=== PATIENT | female | born 1980 | race Caucasian/White ===

== ENCOUNTER 2018-06-24 07:40 | Day surgery (SDC) | payer OTHER ==
[2018-06-23 14:42] LABS: HEMATOCRIT 39.3 % (36.0-48.0); HEMOGLOBIN 13.3 g/dL (12-16); MCH 31.4 pg (26.0-34.0); MCHC 33.8 g/dL (31.0-37.0); MCV 92.9 fL (80.0-100.0); RBC 4.23 10x6/uL (4.00-5.40); RDW 13.2 % (11.5-14.5); WBC 12.2 10x3/uL (4.8-10.8)
[~2018-06-24] VITALS: Ht 157.5 cm; Wt 63.5 kg
--- NOTE | ~2018-06-24 | OP ---
PATIENT NAME: VALERIE PALMER MEDICAL RECORD: [id number] :82 LOCATION:[facility] ADMISSION DATE: SURGEON: BETTE PETERSEN MD DATE OF OPERATION: 06/24/2018 DATE OF SERVICE: 06/24/2018 PREOPERATIVE DIAGNOSES: Lumbar spinal stenosis and foraminal stenosis, right L5-S1. POSTOPERATIVE DIAGNOSES: Lumbar spinal stenosis and foraminal stenosis, right, S1. SURGEON: Bette Petersen MD PROCEDURE: Right L5-S1 lumbar laminotomy, medial facetectomy and foraminotomy with METRx retractor. DESCRIPTION AND TECHNIQUE: After induction of general endotracheal anesthesia, the patient was rolled prone on the Emil frame. Lumbar spine was prepped and draped in usual sterile fashion. Fluoroscopic x-ray and spinal needle localized the L5-S1 interspace on the right side. A fluoroscopic x-ray confirmed the level at L5-S1 on the right. Next, a Midas-Jeremy drill and microscope were used to perform laminotomy, medial facetectomy and foraminotomy at L5-S1 on the right. Hypertrophied ligamentum flavum was removed with Cloward rongeurs. Foraminotomy was carried out with a Cloward rongeur on the right side at L5-S1. Following this, the L5 and S1 nerve roots were decompressed well. Meticulous hemostasis was maintained throughout the wound. Wound was irrigated with copious amounts of Ancef irrigant solution. The fascia was closed with 2-0 Vicryl suture. Subdermal layer was closed with 3-0 Vicryl suture. The skin was reapproximated with Steri-Strips and benzoin. A sterile dressing was applied to the wound. The patient was awakened in good condition and taken to recovery. All counts were reported as correct. Estimated blood loss was minimal. 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 06/24/18 [place] [address]
[2018-06-24] MEDS ORDERED: NEURONTIN600 MG PO (08:01)
[2018-06-24] MEDS ORDERED: MOBIC7.5 MG PO (08:02)
[2018-06-24] MEDS ORDERED: ROBAXIN500 MG PO (08:02)
[2018-06-24 08:03] VITALS: BP 114/45; Ht 157.5 cm; Wt 63.5 kg
== END 2018-06-24 13:56 | disposition home or self-care (01) ==
LOC: D.OPS 07:40 → D.PAN 10:15 → D.OPS 10:15
PROVIDERS: Anesthesiology
DX: M48.07 Spinal stenosis, lumbosacral region (principal); Z01.812 Encounter for preprocedural laboratory examination